=== PATIENT | male | born 1945 | race Caucasian/White ===

== ENCOUNTER 2018-03-30 10:04 | Day surgery (SDC) | payer MEDICARE, BC ==
[2018-03-29 10:27] LABS: BASOPHILS # (AUTO) 0.1 X10'3 (0-0.2); BASOPHILS % (AUTO) 0.8 % (0-1); EOSINOPHILS # (AUTO) 0.2 X10'3 (0-0.9); EOSINOPHILS % (AUTO) 2.7 % (0-6); HEMATOCRIT 48.1 % (42.0-52.0); HEMOGLOBIN 15.9 g/dl (14.0-17.9); LYMPHOCYTES # (AUTO) 1.5 X10'3 (1.1-4.8); LYMPHOCYTES % (AUTO) 20.8 % (21-51); MEAN CORPUSCULAR HEMOGLOBIN 31.1 PG (27.0-31.0); MEAN CORPUSCULAR HGB CONC 32.9 % (33.0-36.5); MEAN CORPUSCULAR VOLUME 94.5 FL (78-98); MEAN PLATELET VOLUME 11.1 FL (7.4-10.4); MONOCYTES # (AUTO) 0.6 X10'3 (0-0.9); NEUTROPHILS # (AUTO) 4.7 X10'3 (1.8-7.7); NEUTROPHILS % (AUTO) 66.7 % (42-75); PLATELET COUNT 135 X10'3 (140-440); RED BLOOD COUNT 5.09 X10'6 (4.70-6.10); RED CELL DISTRIBUTION WIDTH 13.6 % (11.5-14.5)
[2018-03-29 10:37] LABS: ALBUMIN 3.8 G/DL (3.4-5.0); ANION GAP 10 (8-16); BLOOD UREA NITROGEN 17 MG/DL (7-18); BUN/CREATININE RATIO 16.2 (5.4-32.0); CALCIUM 8.8 MG/DL (8.5-10.1); CHLORIDE 104 MMOL/L (99-107); CREATININE 1.05 MG/DL (0.60-1.10); GLUCOSE 95 MG/DL (70-104); POTASSIUM 4.3 MMOL/L (3.5-5.1); SODIUM 141 MMOL/L (135-145); TOTAL CARBON DIOXIDE 27.5 MMOL/L (24-32); eGFR 70 ML/MIN
[2018-03-29 11:00] LABS: LARGE PLATELETS FEW; PLATELET ESTIMATE DECREASED
[2018-03-30] VITALS (19 sets, daily range): BP systolic 52–148; BP diastolic 28–106
[~2018-03-30] VITALS: Ht 167.6 cm; Wt 77.1 kg
[2018-03-30] MEDS ORDERED: DRON400T2 PO (10:35)
[2018-03-30] MEDS ORDERED: OMEG-182 PO (10:35)
[2018-03-30] MEDS ORDERED: ZEAX100P PO (10:35)
[2018-03-30] MEDS ORDERED: GLUC-219 PO (10:35)
[2018-03-30] MEDS ORDERED: CHOL2000 PO (10:35)
[2018-03-30] MEDS ORDERED: VITA400C65 PO (10:35)
[2018-03-30] MEDS ORDERED: BIOT10004 PO (10:35)
[2018-03-30] MEDS ORDERED: AMLO5TAB PO (10:35)
[2018-03-30] MEDS ORDERED: CARV6.253 PO (10:35)
[2018-03-30] MEDS ORDERED: SAW/1TAB2 PO (10:35)
[2018-03-30] MEDS ORDERED: LOSA100T57 PO (10:35)
[2018-03-30] MEDS ORDERED: VITA1TAB20 PO (10:35)
[2018-03-30] MEDS ORDERED: [UNRECOGNIZED DRUG - CODE] PO (10:35)
[2018-03-30] MEDS ORDERED: POTA99TA21 PO (10:35)
[2018-03-30] MEDS ORDERED: ATOR20TA PO (10:35)
[2018-03-30] MEDS ORDERED: APIX5TAB3 PO (10:35)
[2018-03-30] MEDS ORDERED: MIDAZolam 5mg/ml 2ml vial IV ONE (10:50)
[2018-03-30] MEDS ORDERED: amiodarone in dextrose, iso-osm 150mg/100ml bag IV ONE (10:50)
[2018-03-30] MEDS ORDERED: LORazepam 0.5 MG tablet PO ONE (10:50)
[2018-03-30] MEDS ORDERED: normal saline 1000ml 1,000 ML IV SCH (10:50)
[2018-03-30] MEDS ORDERED: morphine 10mg/ml inj. IV ONE (10:50)
[2018-03-30] MEDS ORDERED: diphenhydrAMINE 25mg capsule PO ONE (10:50)
[2018-03-30] MEDS ORDERED: atropine 1 MG/1 ML vial IV PRN (12:00)
== END 2018-03-30 15:00 | disposition home or self-care (01) ==
LOC: SSTAY O 10:04
PROVIDERS: ATTEND Internal Medicine Cardiovascular Disease
DX: I48.1 Persistent atrial fibrillation (principal); E78.5 Hyperlipidemia, unspecified; I27.20 Pulmonary hypertension, unspecified; I45.81 Long QT syndrome; I11.0 Hypertensive heart disease with heart failure; I50.22 Chronic systolic (congestive) heart failure; I42.0 Dilated cardiomyopathy; F10.10 Alcohol abuse, uncomplicated; Z90.89 Acquired absence of other organs; Z79.01 Long term (current) use of anticoagulants; Z79.899 Other long term (current) drug therapy; Z98.890 Other specified postprocedural states
CPT/HCPCS: 36415; 80048; 85025; 92960; 93005; J0282; J0461; J2250; J2270; J7030; Q0163

== ENCOUNTER 2023-10-19 07:15 | Day surgery (SDC) | payer MEDICARE, BC ==
[2023-10-13 16:14] LABS: BASOPHILS # (AUTO) 0.1 X10'3 (0-0.2); BASOPHILS % (AUTO) 0.8 % (0-1); EOSINOPHILS # (AUTO) 0.4 X10'3 (0-0.9); EOSINOPHILS % (AUTO) 4.5 % (0-6); LYMPHOCYTES # (AUTO) 1.9 X10'3 (1.1-4.8); LYMPHOCYTES % (AUTO) 24.8 % (21-51); MEAN CORPUSCULAR HEMOGLOBIN 31.9 PG (27.0-31.0); MEAN CORPUSCULAR HGB CONC 33.5 g/dL (33.0-36.5); MEAN CORPUSCULAR VOLUME 95.3 FL (78-98); MEAN PLATELET VOLUME 10.5 FL (7.4-10.4); MONOCYTES # (AUTO) 0.7 X10'3 (0-0.9); MONOCYTES % (AUTO) 9.2 % (2-12); NEUTROPHILS # (AUTO) 4.8 X10'3 (1.8-7.7); NEUTROPHILS % (AUTO) 60.7 % (42-75); PRE OP HEMATOCRIT 45.9 % (42.0-52.0); PRE OP HEMOGLOBIN 15.4 g/dL (14.0-17.9); PRE OP PLATELET COUNT 157 X10'3 (140-440); PRE OP WHITE BLOOD COUNT 7.9 10'3 (4.8-10.8); RED BLOOD COUNT 4.82 X10'6 (4.70-6.10); RED CELL DISTRIBUTION WIDTH 13.3 % (11.5-14.5)
[2023-10-13 16:25] LABS: ALBUMIN 3.9 G/DL (3.4-5.0); ALBUMIN/GLOBULIN RATIO 1.1 (1.1-1.5); ALKALINE PHOSPHATASE 107 IU/L (46-116); BLOOD UREA NITROGEN 15 MG/DL (7-18); BUN/CREATININE RATIO 13.9 (10.0-20.0); CALCIUM 8.8 MG/DL (8.5-10.1); CHLORIDE 104 MMOL/L (99-107); CREATININE 1.08 MG/DL (0.60-1.10); PRE OP ALT 44 U/L (30-65); PRE OP ANION GAP 8 (8-16); PRE OP BILIRUB, TOTAL 0.7 MG/DL (0.0-1.0); PRE OP GLUCOSE 98 MG/DL (70-104); PRE OP SODIUM 141 MMOL/L (135-145); TOTAL CARBON DIOXIDE 28.6 MMOL/L (24-32); TOTAL PROTEIN 7.5 G/DL (6.4-8.2); eGFR 66 ML/MIN
[2023-10-13 16:36] LABS: PRE OP AST 30 U/L (10-37); PRE OP POTASSIUM 4.2 MMOL/L (3.4-5.1)
[~2023-10-19] VITALS: Ht 167.6 cm; Wt 80.3 kg
[2023-10-19] MEDS: cefazolin 2gm/D5W 100mL 100 ML IV ONE (05:30)
[2023-10-19] MEDS: DOCUMENT DATE & TIME OF BETA-BLOCKER PO ONE (05:30)
[~2023-10-19 07:15] MED LIST: AMLO5TAB PO; APIX5TAB3 PO; CARV6.253 PO; LOSA100T58 PO; ROSU20TA73 PO; [UNRECOGNIZED DRUG - CODE] PO
[2023-10-19 07:25] VITALS: BP 184/89; PULSE 54; RESP 16; TEMP 97.7; O2SAT 97
[2023-10-19] MEDS ORDERED: LIDOcaine 1% (10mg/ml)w/preservative inj. 20ml MDV ONE (07:49)
[2023-10-19] MEDS ORDERED: BUPIVAcaine/PF 2.5mg/ml (0.25%) 10ml vial ONE (07:49)
[2023-10-19] MEDS: ringers solution, lacted 1,000 ML IV SCH (08:53)
[2023-10-19] MEDS: famotidine 20mg tablet PO ONE (08:53)
[2023-10-19] MEDS ORDERED: propofol inj 20 ML IV ONE (09:30)
[2023-10-19] MEDS ORDERED: sevoflurane 250ml liquid IH ONE (09:30)
[2023-10-19] MEDS ORDERED: ondansetron/PF 4mg/2ml inj ONE (09:32)
[2023-10-19] MEDS ORDERED: LIDOcaine 2% (20mg/ml) 5ml vial ONE (09:32)
[2023-10-19] MEDS: BUPIVAcaine 2.5mg/ml inj 50ml vial (contains preservative) SQ ONE (09:32)
[2023-10-19] MEDS ORDERED: dexamethasone sod phosphate 4mg/ml inj. ONE (09:32)
[2023-10-19 09:58] VITALS: BP 132/81; PULSE 53; RESP 16; O2SAT 95
[2023-10-19] MEDS ORDERED: morphine 4 MG/ML inj SYRINge IV PRN (10:00)
[2023-10-19] MEDS ORDERED: meperidine/PF 25mg/ml syringe IV PRN ×3 (10:00)
[2023-10-19] MEDS ORDERED: proCHLORperazine 10 MG/2 ml inj IV PRN (10:00)
[2023-10-19] MEDS ORDERED: ringers solution, lacted 1,000 ML IV SCH (10:00)
[2023-10-19] MEDS ORDERED: enalaprilat dihydrate 2.5mg/2ml vial IV PRN (10:00)
[2023-10-19] MEDS ORDERED: ondansetron/PF 4mg/2ml inj IV PRN (10:00)
[2023-10-19] MEDS ORDERED: morphine 2 MG/ML inj. syringe IV PRN (10:00)
[2023-10-19] MEDS ORDERED: labetalol 20mg/4ml (5mg/ml) syringe IV PRN (10:00)
[2023-10-19 10:08] VITALS: BP 125/65; PULSE 49; RESP 11; O2SAT 95
[2023-10-19 10:18] VITALS: BP 156/70; PULSE 52; RESP 13; O2SAT 95
[2023-10-19 10:28] VITALS: PULSE 53; RESP 14; O2SAT 97
== END 2023-10-19 10:48 | disposition home or self-care (01) ==
LOC: PRE-OP 07:15 → PAS 10:48
PROVIDERS: ATTEND Orthopaedic Surgery Hand Surgery
DX: G56.01 Carpal tunnel syndrome, right upper limb (principal); I44.7 Left bundle-branch block, unspecified; I10 Essential (primary) hypertension; E78.00 Pure hypercholesterolemia, unspecified; I48.91 Unspecified atrial fibrillation; Z79.01 Long term (current) use of anticoagulants; Z79.891 Long term (current) use of opiate analgesic; Z79.899 Other long term (current) drug therapy; Z90.89 Acquired absence of other organs; Z98.890 Other specified postprocedural states; Z80.3 Family history of malignant neoplasm of breast; Z82.3 Family history of stroke
CPT/HCPCS: 36415; 64721; 80053; 82948; 85025; 93005; A4215; A6449; J0690; J1100; J2001; J2405; J2704; J3490; J7030; J7120; Z7506; Z7512; Z7610